=== PATIENT | female | born 1965 | race Caucasian/White ===

== ENCOUNTER → 2019-02-08 | Outpatient (CLI) | payer OTHER ==
[~2019-02-08] MED LIST: ALPR0.5T7 PO; FLUO40CA9 PO; FLUT1DIS3 INH; GABA300C PO; HYDR-3245 PO; LEVO50TA PO; LORA-702 PO; MELO15TA6 PO; METH500T7 PO; MOME17SP NAS; OXYC-302 PO; POTA473S4 PO; SUMA100T3 PO; TRAM50TA2 PO
== END | disposition home or self-care (01) ==
LOC: STAR 08:02
PROVIDERS: ATTEND Orthopaedic Surgery
DX: Z02.9 Encounter for administrative examinations, unspecified (principal)

== ENCOUNTER 2019-02-15 05:11 | Day surgery (SDC) | payer OTHER ==
[~2019-02-15] VITALS: Ht 162.6 cm; Wt 96.5 kg
[2019-02-15 06:29] VITALS: BP 129/89
[2019-02-15] MEDS ORDERED: FENTANYL PF 100 MCG/2ML ONE ×2 (06:29→09:06)
[2019-02-15] MEDS ORDERED: MIDAZOLAM 1 MG/ML, 2ML ONE ×2 (06:29→09:06)
[2019-02-15] MEDS ORDERED: LACTATED RINGERS 1,000 ML IV SCH (06:31)
[2019-02-15] MEDS ORDERED: SCOPOLAMINE PATCH, 1.5MG PATCH.TD72 TD ONE ×2 (06:38→11:10)
[2019-02-15] MEDS ORDERED: ROCURONIUM 10 MG/ML,10ML ONE (07:01)
[2019-02-15] MEDS ORDERED: SUCCINYLCHOLINE 20 MG/ML, 10ML ONE (07:01)
[2019-02-15] MEDS ORDERED: CEFAZOLIN 1,000 MG ONE (07:34)
[2019-02-15] MEDS ORDERED: BUPIVACAINE/PF 0.5% ONE (07:34)
[2019-02-15] MEDS ORDERED: PROPOFOL 10 MG/ML, 20ML ONE (07:34)
[2019-02-15] MEDS ORDERED: LIDOCAINE-MPF 2% ,5ML ONE (07:34)
[2019-02-15] MEDS ORDERED: METOCLOPRAMIDE 5 MG/ML, 2ML ONE (07:34)
[2019-02-15] MEDS ORDERED: DEXAMETHASONE 4 MG/ML, 1ML ONE (07:34)
[2019-02-15] MEDS ORDERED: FENTANYL PF 100 MCG/2ML IV PRN (09:00)
[2019-02-15] MEDS ORDERED: MIDAZOLAM 1 MG/ML, 2ML IV PRN (09:00)
[2019-02-15] MEDS ORDERED: PROMETHAZINE 25 MG/ML, 1ML IV PRN (09:00)
[2019-02-15] MEDS ORDERED: hydrALAzine 20 MG/ML, 1ML IV PRN (09:00)
[2019-02-15] MEDS ORDERED: HYDROmorphone 2 MG/ML, 1ML IVPush PRN (09:00)
[2019-02-15] MEDS ORDERED: SUMATRIPTAN 50 MG TABLET PO PRN (09:00)
[2019-02-15] MEDS ORDERED: ALBUTEROL/IPRATROPIUM 2.5MG/0.5MG, 3 ML NPPB PRN (09:00)
[2019-02-15] MEDS ORDERED: METOPROLOL 1 MG/ML, 5ML IV PRN (09:00)
[2019-02-15] MEDS ORDERED: MEPERIDINE/PF 25MG/ML,1ML IVPush PRN (09:00)
[2019-02-15] MEDS ORDERED: OXYcodone 5 MG/5 ML ORAL.SOL UDC PO PRN (09:00)
[2019-02-15] MEDS ORDERED: DIAZEPAM 5 MG/ML, 2ML IVPush PRN (09:00)
[2019-02-15] MEDS ORDERED: OXYcodone 5 MG/5 ML ORAL.SOL UDC ONE (09:06)
== END 2019-02-15 11:55 | disposition home or self-care (01) ==
LOC: OUT 05:11
PROVIDERS: ATTEND Orthopaedic Surgery
DX: M24.671 Ankylosis, right ankle (principal); M93.271 Osteochondritis dissecans, right ankle and joints of right foot; M25.371 Other instability, right ankle; M76.71 Peroneal tendinitis, right leg; M65.871 Other synovitis and tenosynovitis, right ankle and foot; M20.12 Hallux valgus (acquired), left foot; M20.11 Hallux valgus (acquired), right foot; J45.909 Unspecified asthma, uncomplicated; E78.5 Hyperlipidemia, unspecified; G43.909 Migraine, unspecified, not intractable, without status migrainosus; I10 Essential (primary) hypertension; E66.9 Obesity, unspecified; Z79.890 Hormone replacement therapy; Z79.891 Long term (current) use of opiate analgesic; Z79.899 Other long term (current) drug therapy; Z88.2 Allergy status to sulfonamides; Z88.8 Allergy status to other drugs, medicaments and biological substances; Z91.040 Latex allergy status; Z98.890 Other specified postprocedural states
CPT/HCPCS: 27695; 28086; 29891; 29898; 64445; 64447; C1713; J0330; J0690; J1100; J2704; J2765; J3010; J7120; J2250